=== PATIENT | male | born 1980 | race Two or more races ===

== ENCOUNTER → 2017-11-18 08:24 | Outpatient (CLI) | payer OTHER, SELFPAY ==
[2017-11-18 11:20] LABS: ALB/GLOB Ratio 1.2 RATIO (0.9-2.4); AST(SGOT) 27 U/L (15-37); Alanine Aminotransfer ALT/SGPT 54 U/L (16-61); Albumin, Serum 4.3 g/dL (3.2-5.0); Alkaline Phosphatase 78 U/L (45-117); Anion Gap 4 (5-15); BUN 18 mg/dL (7-18); BUN/Creat Ratio 20.4 RATIO (10-20); Calcium,Total 8.8 mg/dL (8.5-10.1); Chloride 105 mmol/L (98-107); Cholesterol 199 mg/dL (200); Creatinine, Serum 0.88 mg/dL (0.70-1.30); EST Glomerular Filtration Rate 103 mL/min (>60); Est Glom Filt Rate - Afr Amer 125 mL/min (>60); Globulin 3.7 g/dL (2.2-4.2); Glucose 83 mg/dL (74-106); High Density Lipoprotein 56 mg/dL; Potassium 3.9 mmol/L (3.5-5.1); Sodium Level 141 mmol/L (136-145); Triglycerides 106 mg/dL; Very Low Density Lipoprotein 21 mg/dL (5-40)
== END ==
PROVIDERS: Family Provider Family Medicine; PCP Family Medicine; Visit Provider Family Medicine
DX: Z00.00 Encounter for general adult medical examination without abnormal findings (principal); K58.9 Irritable bowel syndrome, unspecified
CPT/HCPCS: 36415; 80053; 80061

== ENCOUNTER → 2018-04-24 14:41 | Outpatient (CLI) | payer OTHER, SELFPAY | LOC: MTLAB 14:42 → MTRAD 14:51 | PROVIDERS: Family Provider Family Medicine; PCP Family Medicine; Visit Provider Internal Medicine Gastroenterology | DX: K59.00 Constipation, unspecified (principal) | CPT/HCPCS: 74019 ==

== ENCOUNTER → 2018-12-21 08:26 | Outpatient (CLI) | payer OTHER, SELFPAY ==
[2018-12-21 10:32] LABS: Absolute Lymphocyte Count 1.27 X10^3/ul (0.83-4.51); Absolute Neutrophil Count 2.5 X10^3/uL (2.0-7.7); Basophil# 0.04 X10^3/uL; Basophil% 0.9 % (0-1); Eosinophil# 0.13 X10^3/uL; Hematocrit 42.5 % (40-54); Hemoglobin 14.2 g/dl (13.0-16.5); Lymphocyte # 1.27 X10^3/ul (4.0); Lymphocyte % 29.6 % (19-41); Mean Corp Hgb Conc 33.4 g/gl (32-36); Mean Corpuscular Hgb 29.8 pg (27.0-32.0); Mean Corpuscular Volume 89.1 fL (80-94); Mean Platelet Vol. 10.8 fl (6.2-12.0); Monocyte# 0.34 X10^3/uL; Monocyte% 7.9 % (0-10); Neutrophil # 2.51 X10^3/uL (2.7-7.7); Neutrophil % 58.6 % (47-70); Platelet Count 224 K/mm3 (150-450); RBC Distribution Width SD 41.9 fl (35.1-43.9); Red Blood Count 4.77 M/mm3 (4.6-6.2); White Blood Count 4.3 K/mm3 (4.4-11.0)
[2018-12-21 10:36] LABS: POSITIVE COUNT NO; POSITIVE DIFFERENTIAL NO; POSITIVE MORPHOLOGY NO
[2018-12-21 11:15] LABS: ALB/GLOB Ratio 1.3 RATIO (0.9-2.4); AST(SGOT) 18 U/L (15-37); Alanine Aminotransfer ALT/SGPT 37 U/L (16-61); Albumin, Serum 4.3 g/dL (3.2-5.0); Alkaline Phosphatase 84 U/L (45-117); Anion Gap 5 (5-15); BUN 17 mg/dL (7-18); BUN/Creat Ratio 21.5 RATIO (10-20); Calcium,Total 9.1 mg/dL (8.5-10.1); Chloride 106 mmol/L (98-107); Creatinine, Serum 0.79 mg/dL (0.70-1.30); EST Glomerular Filtration Rate 117 mL/min (>60); Est Glom Filt Rate - Afr Amer 141 mL/min (>60); Globulin 3.2 g/dL (2.2-4.2); Glucose 84 mg/dL (74-106); Potassium 3.9 mmol/L (3.5-5.1); Protein, Total 7.5 g/dL (6.4-8.2); Sodium Level 142 mmol/L (136-145)
== END ==
PROVIDERS: Family Provider Family Medicine; PCP Family Medicine; Referring Provider Family Medicine; Visit Provider Family Medicine
DX: R10.9 Unspecified abdominal pain (principal)
CPT/HCPCS: 36415; 80053; 85025

== ENCOUNTER → 2019-01-01 18:22 | Outpatient (CLI) | payer SELFPAY, OTHER ==
--- NOTE | 2019-01-01 17:55 | CT_ITS ---
STUDY: CT ABDOMEN AND PELVIS WITH CONTRAST REASON FOR EXAM: Male, 38 years old. Left lower quadrant pain RADIATION DOSAGE (If Supplied By Facility): DLP = ( 623.33 ) mGycm TECHNIQUE: Transaxial images were obtained from the dome of the diaphragm to the symphysis pubis with oral contrast. 75ML ml of Isovue 300 contrast was administered. Sagittal and coronal images were reconstructed. Individualized dose optimization techniques were used for this CT. COMPARISON: None. FINDINGS: The visualized lung bases are clear. The visualized portions of the heart and pericardium are within normal limits. There are no calcified gallstones present. The liver is within normal limits. There are no suspicious hepatic lesions. The spleen is normal in size. The pancreas is within normal limits. The adrenal glands are within normal limits. There are no obstructing renal stones. There is no hydronephrosis. There are no focal renal lesions. Normal visualized stomach. There is no bowel obstruction or inflammation. The appendix is normal. The prostate measures 5.5 cm in transverse dimension. The aorta is normal in caliber. There is no abdominal or pelvic free air, free fluid, fluid collection or lymphadenopathy. There are no destructive osseous lesions. CT/Abdomen/Pelvis WITH Contrast IMPRESSION: No acute abdominal or pelvic pathology. Enlarged prostate. Electronically Signed: Sudhakar Garcia, at 20:41 EDT Tel , Service support ,
== END ==
PROVIDERS: Family Provider Family Medicine; PCP Family Medicine; Referring Provider Family Medicine; Visit Provider Family Medicine
DX: R10.9 Unspecified abdominal pain (principal)
CPT/HCPCS: 74177; Q9967

== ENCOUNTER → 2020-04-12 08:31 | Outpatient (CLI) | payer OTHER, SELFPAY ==
[2019-07-27 07:14] VITALS: BMI 21.9
[2020-04-12 10:34] LABS: Anion Gap 3 (5-15); BUN 15 mg/dL (7-18); BUN/Creat Ratio 18.9 RATIO (10-20); Calcium,Total 9.2 mg/dL (8.5-10.1); Chloride 105 mmol/L (98-107); Cholesterol 213 mg/dL (200); Creatinine, Serum 0.79 mg/dL (0.70-1.30); EST Glomerular Filtration Rate 115 mL/min (>60); Est Glom Filt Rate - Afr Amer 140 mL/min (>60); Glucose 84 mg/dL (74-106); High Density Lipoprotein 61 mg/dL; Potassium 3.6 mmol/L (3.5-5.1); Sodium Level 139 mmol/L (136-145); Triglycerides 93 mg/dL; Very Low Density Lipoprotein 19 mg/dL (5-40)
== END ==
PROVIDERS: PCP Family Medicine; Referring Provider Family Medicine; Visit Provider Family Medicine
DX: Z00.00 Encounter for general adult medical examination without abnormal findings (principal)
CPT/HCPCS: 36415; 80048; 80061

== ENCOUNTER → 2022-07-05 | Outpatient (CLI) | payer BC, SELFPAY ==
--- NOTE | 2022-07-05 08:54 | RAD_ITS ---
STUDY: X-RAY CHEST REASON FOR EXAM: Male, 41 years old. Fever and cough TECHNIQUE: PA and lateral views of the chest. COMPARISON: 2014 FINDINGS: The lungs are clear and expanded. There is no demonstrated pleural abnormality. Normal size heart. Normal mediastinum and renu. Normal visualized pulmonary arteries. Normal visualized aortic arch and descending thoracic aorta. Normal visualized thoracic spine. Normal visualized ribs, clavicles, and shoulders. There is no demonstrated abnormality of the visualized soft tissue structures of the upper abdomen. RAD/Chest PA and Lateral IMPRESSION: Normal x-ray examination of the chest. Electronically Signed: Jose F Bliss MD at 14:19 EST ,
== END | disposition home or self-care (01) ==
LOC: MTRAD 08:53
PROVIDERS: PCP Family Medicine; Referring Provider Family Medicine; Visit Provider Family Medicine
DX: J18.9 Pneumonia, unspecified organism (principal)
CPT/HCPCS: 71046

== ENCOUNTER → 2022-11-14 | Outpatient (CLI) | payer BC, SELFPAY ==
[2022-11-14 13:10] LABS: Anion Gap 6 (5-15); BUN 16 mg/dL (7-18); BUN/Creat Ratio 18.9 RATIO (10-20); Calcium,Total 9.7 mg/dL (8.5-10.1); Chloride 106 mmol/L (98-107); Cholesterol 213 mg/dL (200); Creatinine, Serum 0.85 mg/dL (0.70-1.30); EST Glomerular Filtration Rate 106 mL/min (>60); Est Glom Filt Rate - Afr Amer 128 mL/min (>60); Glucose 83 mg/dL (74-106); High Density Lipoprotein 75 mg/dL; Sodium Level 140 mmol/L (136-145); Triglycerides 73 mg/dL; Very Low Density Lipoprotein 15 mg/dL (5-40)
== END | disposition home or self-care (01) ==
LOC: MTLAB 09:34
PROVIDERS: PCP Family Medicine; Referring Provider Family Medicine; Visit Provider Family Medicine
DX: Z00.00 Encounter for general adult medical examination without abnormal findings (principal)
CPT/HCPCS: 36415; 80048; 80061

== ENCOUNTER → 2023-06-05 | Outpatient (CLI) | payer BC, SELFPAY ==
--- NOTE | 2023-06-05 08:44 | BI_ITS ---
MAMMOGRAPHY - BILATERAL DIAGNOSTIC REASON FOR EXAM: Male, 42 years old. Left breast mass. PERTINENT HISTORY: Non-contributory. TECHNIQUE: Digital bilateral breast dong (3D mammographic acquisition) in the CC and MLO projections. 2-D mediolateral oblique (MLO) and craniocaudad (CC) views of both breasts were obtained. CAD: Full Field Digital Mammography with Computer Added Detection was performed. COMPARISON: None. Baseline examination. FINDINGS: Breast Composition: There are scattered areas of fibroglandular density. There are no dominant masses or suspicious calcifications. Asymmetry of breast tissue or more breast tissue is seen in the retroareolar region of the left breast as compared to the right side. This most likely represents gynecomastia. Correlation with ultrasound is recommended. No other significant abnormalities are identified. BI/DIAG MAMM W/CAD, BILAT IMPRESSION: Findings suggestive of gynecomastia more prominent on the left side. Targeted ultrasound correlation is recommended. ASSESSMENT CATEGORY: BIRADS Category 0: Incomplete. Need additional imaging evaluation. A letter regarding these results will be sent to the patient by the facility within 30 days. Approximately 10% of breast cancers are not detected by mammography. A normal mammogram should not delay biopsy of a clinically suspicious abnormality. Electronically Signed: Montrell Bojorquez MD at 14:55 EDT ,
--- NOTE | 2023-06-05 08:47 | US_ITS ---
STUDY: ULTRASOUND BREAST - LEFT REASON FOR EXAM: Male, 42 years old. Palpable lump left breast. TECHNIQUE: Axial and longitudinal images of the LEFT breast were performed with a high resolution ultrasound transducer. # OF IMAGES: 30 COMPARISON: Comparison is made with prior mammogram done earlier in the day. FINDINGS: LEFT Breast: Retroglandular tissue is seen more prominent on the left side as compared to the right breast. This is suggestive of gynecomastia. US/Breast Limited Unilateral IMPRESSION: Findings suggestive of bilateral gynecomastia. More prominent on the left side. ASSESSMENT CATEGORY: BIRADS Category 2: Benign. A letter regarding these results will be sent to the patient by the facility within 30 days. Electronically Signed: Montrell Bojorquez MD at 14:57 EDT ,
== END | disposition home or self-care (01) ==
PROVIDERS: PCP Family Medicine; Referring Provider Family Medicine; Visit Provider Family Medicine
DX: N63.20 Unspecified lump in the left breast, unspecified quadrant (principal)
CPT/HCPCS: 76642; 77062; 77066; G0279

== ENCOUNTER → 2023-06-16 | Outpatient (CLI) | payer BC, SELFPAY ==
[2023-06-16 17:45] LABS: Absolute Lymphocyte Count 1.02 X10^3/uL (0.83-4.51); Absolute Neutrophil Count 4.2 X10^3/uL (2.0-7.7); Basophil# 0.05 X10^3/uL; Basophil% 0.9 % (0-1); Eosinophil# 0.05 X10^3/uL; Eosinophils% 0.9 % (0-5); Hematocrit 47.5 % (40-54); Hemoglobin 15.4 g/dL (13.0-16.5); Lymphocyte # 1.02 X10^3/ul (0.83-4.51); Lymphocyte % 18.1 % (19-41); Mean Corp Hgb Conc 32.4 g/dL (32-36); Mean Corpuscular Hgb 29.9 pg (27.0-32.0); Mean Corpuscular Volume 92.2 fL (80-94); Mean Platelet Vol. 10.6 fl (6.2-12.0); Monocyte% 5.3 % (0-10); NRBC Flagged by Analyzer 0 % (0-5); Neutrophil # 4.21 X10^3/uL (2.7-7.7); Neutrophil % 74.6 % (47-70); Platelet Count 266 K/mm3 (150-450); RBC Distribution Width CV 12.2 % (11.6-14.6); RBC Distribution Width SD 41.6 fl (35.1-43.9); Red Blood Count 5.15 M/mm3 (4.6-6.2); White Blood Count 5.6 K/mm3 (4.4-11.0)
[2023-06-16 17:51] LABS: Prothrombin Time (Protime)PT. 13.1 SECONDS (11.7-14.9)
[2023-06-18 04:07] LABS: HCG BETA-SUBUNIT QUANT. < 1 mIU/mL (0-3)
[2023-06-20 01:07] LABS: Estrogen, Total, Serum 159 pg/mL (56-213)
== END | disposition home or self-care (01) ==
LOC: MTLAB 15:42
PROVIDERS: PCP Family Medicine; Referring Provider Family Medicine; Visit Provider Family Medicine
DX: N62 Hypertrophy of breast (principal)
CPT/HCPCS: 36415; 82672; 84403; 84702; 85025; 85610

== ENCOUNTER → 2023-11-27 | Outpatient (CLI) | payer BC, SELFPAY ==
[2023-11-27 11:20] LABS: Cholesterol 209 mg/dL (200); High Density Lipoprotein 75 mg/dL; Thyroid Stim Hormone (TSH) 1.57 uIU/mL (0.358-3.74); Triglycerides 78 mg/dL; Very Low Density Lipoprotein 16 mg/dL (5-40)
[2023-11-27 12:37] LABS: Hemoglobin A1c 5.1 % (3.8-5.6)
== END | disposition home or self-care (01) ==
LOC: MTLAB 08:33
PROVIDERS: PCP Family Medicine
DX: Z79.899 Other long term (current) drug therapy (principal)
CPT/HCPCS: 36415; 80061; 83036; 84443

== ENCOUNTER 2024-01-10 20:09 | Emergency (ER) | payer BC, SELFPAY ==
[2024-01-10 20:10] VITALS: BP 122/79; PULSE 89; RESP 16; TEMP 36.4; O2SAT 96; BMI 19.9
--- NOTE | 2024-01-10 21:04 | EX.ED.DYSGE1 ---
HPI <CARMEN Young - Last Filed: 01/10/24 22:48> History of Present Illness Chief Complaint: Abd Pain Narrative Narrative: Patient is a 43-year-old male with history of anxiety, depression who is on Cymbalta, chronic constipation presents the emergency department with lower periumbilical abdominal pain, pain to the left lower abdomen. Patient states that this been ongoing for 3 days. He states been getting progressively worse. Patient states he feels nauseous however no vomiting. He thinks he had a fever last night however does not know for sure. Patient denies any blood in stool or vomit. Patient is here for evaluation [facility] <CARMEN Young - Last Filed: 01/10/24 22:48> [facility] Medical History (Updated 01/10/24 @ 22:47 by CARMEN Young) Paroxysmal supraventricular tachycardia Dizziness Anxiety Panic attacks Vertigo Home Medications ?Medication ?Instructions ?Recorded ?Last Taken ?Type lubiprostone 8 mcg capsule 8 mcg PO .PRN PRN 06/10/23 Unknown History (Amitiza) duloxetine 20 mg capsule,delayed 20 mg PO DAILY 01/10/24 Unknown History release magnesium citrate 300 ml PO X1 #1 BOTTLE 01/10/24 Unknown Rx Allergy/AdvReac Type Severity Reaction Status Date / Time ANTIHISTMINES Allergy Other Uncoded 06/10/23 09:10 Family History Mother Hypertension Father Diabetes Heart disease Grandmother Cancer Surgical History History of radiofrequency ablation procedure for cardiac arrhythmia (05/10/15) Social History (Updated 06/10/23 @ 09:09 by Chey Conklin) Smoking Status: Never smoker alcohol intake: current alcohol intake frequency: a few times a month details: on occassion substance use type: does not use additional social history: does not take aspirin and ibuprofen ROS <CARMEN Young - Last Filed: 01/10/24 22:48> ROS ED ROS Narrative Constitutional: Negative for chills, weight loss, weakness. Positive for fever Eyes: Negative for vision loss, vision change, double vision ENT: Negative for any sore throat, ear pain, congestion Cardiovascular: Negative for any chest pain, tightness, palpitations Respiratory: Negative for any cough, sputum production, hemoptysis, dyspnea, dyspnea on exertion, orthopnea Gastrointestinal: Negative for any vomiting, diarrhea, constipation, blood in stool, blood in vomit. Positive for abdominal pain, nausea : Negative for any urinary frequency, dysuria, retention, blood in urine Muscle skeletal: Negative for any neck pain, back pain Neurological: Negative for any headache, syncope, dizziness Skin: Negative for any rashes, itching, abrasions, lacerations Psychiatric: Negative for any depression, anxiety, stress, suicidal ideation, homicidal ideation Hematologic: Negative for any excessive bruising, easy bleeding EXAM <CARMEN Young - Last Filed: 01/10/24 22:48> Physical Exam Narrative Exam Narrative: Vital signs reviewed. HEET: Head normocephalic atraumatic, TMs clear bilaterally. Posterior pharynx is clear, moist mucous membranes. Nares clear bilaterally. Neck: Supple with no lymphadenopathy or tenderness. No signs of meningismus. Cardiac: Regular rate and rhythm no murmurs gallops or rubs, equal peripheral pulses bilaterally. Respiratory: Lungs clear to auscultation bilaterally. No chest tenderness. Abdomen: Soft, nondistended. No abdominal bruit or pulsatile masses. No hepatosplenomegaly. Patient has tenderness to the periumbilical area, left lower quadrant. Active bowel sounds in all quadrants Extremities: No peripheral edema, no signs of gross trauma or deformity. Active full range of motion of all extremities. Neuro: Cranial nerves II through XII intact, no focal neurological deficits. Skin: Clean dry and intact with no rash, purpura, petechiae, vesicles or pustules. Backs/flank: No CVA tenderness, no midline spinal tenderness, no deformity. Psych: Normal mood and affect. No SI, HI or acute psychosis. Const Vital Signs: 01/10/24 20:10 01/10/24 22:10 01/10/24 22:53 Temperature 97.5 F L 98.1 F 98.1 F Temperature Source Temporal Oral Pulse Rate 89 77 78 Respiratory Rate 16 16 16 Blood Pressure 122/79 H 129/72 H 124/77 H Blood Pressure Mean 93 91 92 Pulse Ox 96 98 98 Oxygen Delivery Method Room Air <Dr. Christian Guajardo, DO - Last Filed: 01/10/24 23:31> Physical Exam Const Vital Signs: 01/10/24 20:10 01/10/24 22:10 01/10/24 22:53 Temperature 97.5 F L 98.1 F 98.1 F Temperature Source Temporal Oral Pulse Rate 89 77 78 Respiratory Rate 16 16 16 Blood Pressure 122/79 H 129/72 H 124/77 H Blood Pressure Mean 93 91 92 Pulse Ox 96 98 98 Oxygen Delivery Method Room Air [facility] <CARMEN Young - Last Filed: 01/10/24 22:48> [facility] Lab Data Labs: Laboratory Results - last 24 hr 01/10/24 01/10/24 21:02 21:30 WBC 2.0 L RBC 4.46 L Hgb 13.3 Hct 40.5 MCV 90.8 MCH 29.8 MCHC 32.8 RDW Std Deviation 39.9 RDW Coeff of Asha 11.9 Plt Count 131 L MPV 10.4 Immature Gran % (Auto) 0.000 Neut % (Auto) 61.4 Lymph % (Auto) 18.8 L [place] % (Auto) 17.3 H Eos % (Auto) 1.5 Baso % (Auto) 1.0 Absolute Neuts (auto) 1.2 L Absolute Lymphs (auto) 0.38 L Nucleated RBC % 0 Differential Comment SCANNED Diff Path Review May foll Sodium 136 Potassium 3.7 Chloride 102 Carbon Dioxide 28.0 Anion Gap 6 BUN 18 Creatinine 0.81 Estim Creat Clear Calc 110.90 Est GFR (MDRD) Af Amer 133 Est GFR (MDRD) Non-Af 110 BUN/Creatinine Ratio 22.2 H Glucose 101 Calcium 8.6 Total Bilirubin 0.40 AST 23 ALT 28 Alkaline Phosphatase 75 Total Protein 7.0 Albumin 3.8 Globulin 3.2 Albumin/Globulin Ratio 1.2 Lipase 54 Urine Color Yellow Urine Clarity Clear Urine pH 6.0 Ur Specific [place] 1.020 Urine Protein 15 H Urine Glucose (UA) Normal Urine Ketones Negative Urine Occult Blood 10 H Urine Nitrite Negative Urine Bilirubin Negative Urine Urobilinogen 8 H Ur Leukocyte Esterase 25 H Urine RBC 0-5 SEEN Urine WBC 0 SEEN Ur Squamous Epith Cells 0-5 SEEN Calcium Oxalate Crystal RARE Urine Bacteria 0 SEEN Urine Mucus 0 SEEN Radiography Diagnostic Testing: Clinical Impression(s) from Imaging Studies Abdomen/Pelvis CT 01/10/24 21:22 IMPRESSION: No acute or inflammatory disease or bowel obstruction. Stool throughout the colon can be seen with constipation. Electronically Signed: Connor Steward MD at 22:14 EDT , Treatment and Re-Evaluation :: Patient appears to be in no obvious respiratory distress, patient's vital signs are stable, patient appears nontoxic. Presenting to the emergency department with complaints of pain to the umbilical area, left lower abdomen. Patient received a full abdominal workup including CBC, CMP, lipase. Patient received IV fluids, Zofran, Toradol, oral Bentyl. He will receive a CT scan of the abdomen pelvis to rule out any surgical emergency. All radiologic examinations were read, reviewed by the emergency department attending. From these reads, a plan of care will be put in place. Patient CBC shows a leukopenia with a white blood count 2.0. Patient's hemoglobin stable at 13.3, chemistries were unremarkable, lipase was negative. Patient's urinalysis was negative for any infection. Patient CT scan of the abdomen pelvis shows no acute or inflammatory disease or bowel obstruction. Stool throughout the colon can be seen with constipation. Secondary to this finding, I did speak with the patient he will use MiraLAX [id number], and he will be given a prescription for mag citrate just in case. He is happy the plan of care, he is instructed return for any worsening symptoms. Stable for discharge <Dr. Christian Guajardo, DO - Last Filed: 01/10/24 23:31> [facility] Narrative Medical decision making narrative: I have personally performed a face to face assessment of the patient and have reviewed the SEAN Note. I performed a substantive portion of the visit including all aspects of the following. My valdez findings include: History: Patient presents with abdominal pain, nausea, and vomiting that has been getting progressively worse over the past 2 days. Patient states it is gradually getting worse. Patient states it feels like there is something pulling his intestines out. Patient states it is diffuse across his entire abdomen. Patient states nothing makes it better and nothing makes it worse. Patient admits to low-grade fever of 100 at home. Patient denies any hematemesis or coffee-ground emesis. Patient admits to some constipation. Patient admits to some pain into his back and neck. Exam: Vital signs are stable. Patient is afebrile. Patient is in no acute distress. Oral mucosa is pink and moist. Neck is supple. Trachea is midline. There is no JVD. Heart was regular rate and rhythm. Lungs are clear and equal bilateral. Abdomen is soft. Bowel sounds are normal. There is mild diffuse tenderness. There is no rebound or guarding noted. Cranial nerves II through XII are intact. There are no focal motor or sensory deficits noted. Medical Decision Making: Differential diagnosis includes diverticulitis, viral illness, urinary tract infection, ureteral calculus, pancreatitis, and dehydration. CBC will be obtained to assess for leukocytosis and anemia. Comprehensive metabolic profile will be obtained to assess for hepatic function, renal function, and electrolyte abnormality. Lipase will be obtained to assess for pancreatitis. Urinalysis will be obtained to assess for urinary tract infection. CT scan of the abdomen pelvis will be obtained to assess for ureteral calculus, diverticulitis, bowel obstruction, and perforation. Patient was given IV fluids, Zofran, Bentyl, and Toradol. CBC was reviewed. White blood cell count was slightly low at 2.0 and platelets were slightly low at 131. The remainder is within normal limits. Comprehensive metabolic profile was reviewed and was within normal limits. Lipase was reviewed and was normal at 54. Urinalysis was reviewed. There is no evidence of urinary tract infection or hematuria. CT scan of the abdomen and pelvis was obtained. There is stool throughout the colon. There is no evidence of bowel obstruction or perforation. There is no ureteral calculus noted. This was interpreted by the radiologist was also independently reviewed by myself. Patient was advised of his findings. Patient was feeling better on reevaluation. Patient was instructed to use [id number] laxatives as needed for constipation. Patient was instructed to follow-up with his primary care physician in 5 to 7 days. Patient understood and was agreeable with the plan. All questions were answered. Lab Data Labs: Laboratory Results - last 24 hr 01/10/24 01/10/24 21:02 21:30 WBC 2.0 L RBC 4.46 L Hgb 13.3 Hct 40.5 MCV 90.8 MCH 29.8 MCHC 32.8 RDW Std Deviation 39.9 RDW Coeff of Asha 11.9 Plt Count 131 L MPV 10.4 Immature Gran % (Auto) 0.000 Neut % (Auto) 61.4 Lymph % (Auto) 18.8 L [place] % (Auto) 17.3 H Eos % (Auto) 1.5 Baso % (Auto) 1.0 Absolute Neuts (auto) 1.2 L Absolute Lymphs (auto) 0.38 L Nucleated RBC % 0 Differential Comment SCANNED Diff Path Review December foll Sodium 136 Potassium 3.7 Chloride 102 Carbon Dioxide 28.0 Anion Gap 6 BUN 18 Creatinine 0.81 Estim Creat Clear Calc 110.90 Est GFR (MDRD) Af Amer 133 Est GFR (MDRD) Non-Af 110 BUN/Creatinine Ratio 22.2 H Glucose 101 Calcium 8.6 Total Bilirubin 0.40 AST 23 ALT 28 Alkaline Phosphatase 75 Total Protein 7.0 Albumin 3.8 Globulin 3.2 Albumin/Globulin Ratio 1.2 Lipase 54 Urine Color Yellow Urine Clarity Clear Urine pH 6.0 Ur Specific [place] 1.020 Urine Protein 15 H Urine Glucose (UA) Normal Urine Ketones Negative Urine Occult Blood 10 H Urine Nitrite Negative Urine Bilirubin Negative Urine Urobilinogen 8 H Ur Leukocyte Esterase 25 H Urine RBC 0-5 SEEN Urine WBC 0 SEEN Ur Squamous Epith Cells 0-5 SEEN Calcium Oxalate Crystal RARE Urine Bacteria 0 SEEN Urine Mucus 0 SEEN Radiography Diagnostic Testing: Clinical Impression(s) from Imaging Studies Abdomen/Pelvis CT 01/10/24 21:22 IMPRESSION: No acute or inflammatory disease or bowel obstruction. Stool throughout the colon can be seen with constipation. Electronically Signed: Connor Steward MD at 22:14 EDT Reading Location ID and State: [address] [place] [address] Tel , Service support , Discharge Plan Triage Chief Complaint: Abd Pain ED Midlevel Provider: Aaron Pastrana ED Provider: Christian Guajardo Dx/Rx/DC Orders Clinical Impression: Abdominal pain, Viral syndrome, Leukopenia Instructions: ED Pain, Acute, Uncertain Cause, ED Viral Syndrome (Adult) Prescriptions: New magnesium citrate Solution 300 ml PO X1 Qty: 1 0RF No Action lubiprostone [Amitiza] 8 mcg capsule 8 mcg PO .PRN PRN duloxetine 20 mg capsule,delayed release(DR/EC) 20 mg PO DAILY Primary Care Provider: Aaron Thurston Referrals: Aaron Thurston MD [Primary Care Provider] - Activity Restrictions/Additional Instructions: He did have a low white blood cell count of 2.0. CT scan of the abdomen pelvis showed constipation. Use the MiraLAX twice a day regularly. Use the magnesium citrate for severe constipation Print Language: Azeri Disposition Disposition: Home, Self Care Discharge Date/Time: 01/10/24 22:56
[2024-01-10] MEDS: 0.9% Normal Saline (1000mL) 1,000 ML 999 ML IV (21:10)
[2024-01-10] MEDS: Ondansetron 4 MG/2 ML Vial IV (21:10)
[2024-01-10 21:12] LABS: Absolute Lymphocyte Count 0.38 X10^3/uL (0.83-4.51); Absolute Neutrophil Count 1.2 X10^3/uL (2.0-7.7); Basophil# 0.02 X10^3/uL; Eosinophil# 0.03 X10^3/uL; Eosinophils% 1.5 % (0-5); Hematocrit 40.5 % (40-54); Hemoglobin 13.3 g/dL (13.0-16.5); Lymphocyte # 0.38 X10^3/ul (0.83-4.51); Lymphocyte % 18.8 % (19-41); Mean Corp Hgb Conc 32.8 g/dL (32-36); Mean Corpuscular Hgb 29.8 pg (27.0-32.0); Mean Corpuscular Volume 90.8 fL (80-94); Mean Platelet Vol. 10.4 fl (6.2-12.0); Monocyte# 0.35 X10^3/uL; Monocyte% 17.3 % (0-10); NRBC Flagged by Analyzer 0 % (0-5); Neutrophil # 1.24 X10^3/uL (2.7-7.7); Neutrophil % 61.4 % (47-70); POSITIVE DIFFERENTIAL YES; Platelet Count 131 K/mm3 (150-450); RBC Distribution Width CV 11.9 % (11.6-14.6); RBC Distribution Width SD 39.9 fl (35.1-43.9); Red Blood Count 4.46 M/mm3 (4.6-6.2)
[2024-01-10] MEDS: Dicyclomine 10 MG Capsule 20 MG PO (21:13)
[2024-01-10] MEDS: Ketorolac 15 MG/ML Vial IV (21:13)
[2024-01-10 21:16] LABS: Differential Indicated SCAN CRITERIA MET
--- NOTE | 2024-01-10 21:22 | CT_ITS ---
EXAM: CT ABDOMEN AND PELVIS WITH INTRAVENOUS CONTRAST CLINICAL INDICATION: abdominal pain TECHNIQUE: Helically acquired images were obtained of the abdomen and pelvis with intravenous contrast. CTDIvol = ( 7.01 ) mGy, DLP = ( 386.74 ) mGycm This CT exam was performed using one or more of the following dose reduction techniques: automated exposure control, adjustment of the mA and/or kV according to patient size, and/or use of iterative reconstruction technique. CONTRAST: IV 100mL Isovue-370 COMPARISON: No relevant prior studies available. FINDINGS: LOWER THORAX: Unremarkable. Lung bases are clear. No cardiomegaly. No significant pericardial effusion. ABDOMEN: LIVER: Unremarkable. Homogeneous. No focal mass. GALLBLADDER AND BILE DUCTS: Contracted gallbladder. No calcified gallstones. No gallbladder distention or wall edema. No intra- or extrahepatic biliary ductal dilation. PANCREAS: Unremarkable. No focal cystic or solid mass. SPLEEN: Unremarkable. Normal size without focal cystic or solid mass. ADRENALS: Unremarkable. No nodules. KIDNEYS AND URETERS: Unremarkable. Normal renal size and position. No hydronephrosis. STOMACH AND BOWEL: Stool throughout the colon can be seen constipation. No colitis or diverticulitis or bowel obstruction. PELVIS: APPENDIX: Normal appendix. BLADDER: Decompressed bladder. REPRODUCTIVE: Unremarkable as visualized. No mass. ABDOMEN and PELVIS: INTRAPERITONEAL SPACE: Unremarkable. No free air or free fluid. BONES/JOINTS: Unremarkable. No suspicious lytic or blastic abnormality. SOFT TISSUES: Unremarkable. No discrete abdominal or pelvic wall hernia. VASCULATURE: Unremarkable. Abdominal aorta is non-dilated. LYMPH NODES: Unremarkable. No enlarged lymph nodes. CT/Abdomen/Pelvis W IV Cont ONLY IMPRESSION: No acute or inflammatory disease or bowel obstruction. Stool throughout the colon can be seen with constipation. Electronically Signed: Connor Steward MD at 22:14 EDT ,
[2024-01-10 21:32] LABS: ALB/GLOB Ratio 1.2 RATIO (0.9-2.4); AST(SGOT) 23 U/L (15-37); Alanine Aminotransfer ALT/SGPT 28 U/L (16-61); Albumin, Serum 3.8 g/dL (3.2-5.0); Alkaline Phosphatase 75 U/L (45-117); Anion Gap 6 (5-15); BUN 18 mg/dL (7-18); BUN/Creat Ratio 22.2 RATIO (10-20); Calcium,Total 8.6 mg/dL (8.5-10.1); Chloride 102 mmol/L (98-107); Creatinine, Serum 0.81 mg/dL (0.70-1.30); EST Glomerular Filtration Rate 110 mL/min (>60); Est Glom Filt Rate - Afr Amer 133 mL/min (>60); Globulin 3.2 g/dL (2.2-4.2); Glucose 101 mg/dL (74-106); Lipase 54 U/L (13-75); Potassium 3.7 mmol/L (3.5-5.1); Sodium Level 136 mmol/L (136-145)
[2024-01-10 21:42] LABS: Bacteria 0 SEEN /hpf (None Seen); Mucous, Urine 0 SEEN /hpf (<or=2+); White Blood Cells 0 SEEN /hpf (0-5)
[2024-01-10 21:45] LABS: Color, Urine Yellow (Yellow); Glucose, Dipstick Normal (Normal); Ketone-Dipstick Negative (Negative); Leukocyte Esterase-Dipstick 25 /ul (Negative); Nitrite-Dipstick Negative (Negative); Occult Blood-Urine 10 /ul (Negative); Protein-Dipstick 15 mg/dl (Negative); Urine Bilirubin Dipstick Negative (Negative); Urine Clarity Clear (Clear); Urine Urobilinogen 8 mg/dl (Normal)
[2024-01-10 22:00] LABS: Calcium Oxalate Crystals Ur RARE /hpf (<or=2+); Red Blood Cells-Urine 0-5 SEEN /hpf (0-5); Squamous Epithelial Cells - UA 0-5 SEEN /hpf (0-5)
[2024-01-10 22:10] VITALS: BP 129/72; PULSE 77; RESP 16; TEMP 36.7; O2SAT 98
[2024-01-10 22:29] LABS: Differential Comment SCANNED
[2024-01-10 22:53] VITALS: BP 124/77; PULSE 78; RESP 16; TEMP 36.7; O2SAT 98
[2024-01-13 14:40] LABS: Pathologist Review Reviewed
== END 2024-01-10 22:56 | disposition home or self-care (01) ==
PROVIDERS: Nurse Practitioner; Emergency Provider Emergency Medicine; PCP Family Medicine; Visit Provider Emergency Medicine
DX: R10.33 Periumbilical pain (principal); B34.9 Viral infection, unspecified; D72.819 Decreased white blood cell count, unspecified; F41.9 Anxiety disorder, unspecified; F32.A Depression, unspecified; Z79.899 Other long term (current) drug therapy
CPT/HCPCS: 74177; 80053; 81001; 83690; 85025; 96361; 96374; 96375; 99284; J7030; Q9967; A4216; J2405

== ENCOUNTER → 2024-07-07 | Outpatient (CLI) | payer BC, SELFPAY ==
[2024-07-07 12:53] LABS: Anion Gap 4 (5-15); BUN 15 mg/dL (7-18); BUN/Creat Ratio 16.6 RATIO (10-20); Calcium,Total 9.2 mg/dL (8.5-10.1); Chloride 107 mmol/L (98-107); Cholesterol 218 mg/dL (200); EST Glomerular Filtration Rate 97 mL/min (>60); Est Glom Filt Rate - Afr Amer 117 mL/min (>60); Glucose 90 mg/dL (74-106); High Density Lipoprotein 75 mg/dL; Sodium Level 139 mmol/L (136-145); Triglycerides 113 mg/dL; Very Low Density Lipoprotein 23 mg/dL (5-40)
== END | disposition home or self-care (01) ==
LOC: MTLAB 09:31
PROVIDERS: PCP Family Medicine; Referring Provider Family Medicine; Visit Provider Family Medicine
DX: R89.9 Unspecified abnormal finding in specimens from other organs, systems and tissues (principal)
CPT/HCPCS: 36415; 80048; 80061

== ENCOUNTER → 2024-07-09 | Outpatient (CLI) | payer BC, SELFPAY ==
--- NOTE | 2024-07-09 08:40 | RAD_ITS ---
EXAM: XR RIGHT FINGERS, 3 VIEWS, appears to be middle finger. CLINICAL INDICATION: FINGER PAIN TECHNIQUE: Frontal, lateral and oblique views of a single finger of the right hand. COMPARISON: No relevant prior studies available. FINDINGS: BONES/JOINTS: Unremarkable. No acute fracture. No subluxation. Normal alignment. Preservation of the joint space. No sclerotic or destructive changes observed. SOFT TISSUES: Mild soft tissue swelling if any. No radiopaque foreign body. RAD/Finger(s) Min 2 Views IMPRESSION: Negative x-rays of the visualized right fingers. Electronically Signed: Camille Montelongo MD at 2:33 EST ,
== END | disposition home or self-care (01) ==
LOC: MTRAD 08:38
PROVIDERS: PCP Family Medicine; Referring Provider Family Medicine; Visit Provider Family Medicine
DX: M79.644 Pain in right finger(s) (principal)
CPT/HCPCS: 73140